=== PATIENT | female | born 1975 | race African-American/Black ===

== ENCOUNTER 2018-07-03 07:03 | Emergency (ER) | payer MEDICARE, MEDICAID ==
[~2018-07-03] VITALS: Ht 154.9 cm; Wt 56.7 kg
[2018-07-03 07:11] VITALS: BP 128/68
--- NOTE | 2018-07-03 07:32 | Emergency Room Report ---
History of Present Illness General Chief Complaint: Abdominal Pain Source: Patient Present Illness [facility] Ms. Wilder is a 42 yo female with history of paranoid schizophrenia who presents with abdominal pain for the last 4 hours. She has stomach upset in the epigastric region with vomiting and diarrhea. No fever. [facility] She normally stays with her grandmother. She has stayed at the [facility] for the last 3 days. She stated that [facility] the [facility] in [facility] to help feed the homeless. She denies other medical conditions. Allergies: Coded Allergies: No Known Allergies (Unverified , 07/03/18) Patient History Past Medical History: psych hx Social History: Reports: smoking; Denies: alcohol use, drug use Last Menstrual Period: 04/2018 Now: No Reviewed Nursing Documentation: PMH: Agreed; PSxH: Agreed Nursing Documentation-PMH History Of Psychiatric Problem: Yes - Bipolar Disorder, Schizophrenia Review of Systems Constitutional: Denies: fever, malaise Cardiovascular: Denies: chest pain Gastrointestinal: Reports: abdominal pain, diarrhea, nausea, vomiting All Other Systems: negative except mentioned in HPI Physical Exam Vital Signs Date Time Temp Pulse Resp B/P (MAP) Pulse Ox O2 Delivery O2 Flow Rate FiO2 07/03/18 06:49 98.1 72 16 128/68 100 98.1 Sp02 EP Interpretation: reviewed, normal General Appearance: no apparent distress, alert, GCS 15, non-toxic Head: normocephalic, atraumatic Eyes: bilateral eye normal inspection ENT: hearing grossly normal, normal pharynx, no angioedema, normal voice Neck: full range of motion, supple/symm/no masses Respiratory: chest non-tender, lungs clear, normal breath sounds, speaking full sentences Cardiovascular #1: regular rate, rhythm, no edema Gastrointestinal: normal bowel sounds, non tender, soft, non-distended, no guarding, no rebound Rectal: deferred Genitourinary: normal inspection Musculoskeletal: back normal, gait/station normal, normal range of motion, non- tender, calf tenderness Neurologic: alert, oriented x3, responsive, motor strength/tone normal, sensory intact, speech normal Psychiatric: judgement/insight normal, memory normal, mood/affect normal, no suicidal/homicidal ideation Skin: normal color, no rash, warm/dry, well hydrated Medical Decision Making Diagnostic Impression: Primary Impression: Food poisoning Additional Impression: Paranoid schizophrenia ER Course Ms. Wilder has had abdominal upset diarrhea for the past 4 hours. No evidence of peritonitis. No fever. Normal vital signs. I informed her that she had a mild case of food poisoning. I informed her that she would be discharged. At that time she informed me that she called 911 in order to obtain mental health. She has not taken her psychiatric medicines in several days. She states if she doesn't feel unsafe. She did not have a plan for suicide. She stated that she wanted to be transferred to mental health facility. Patient is medically clear for psychiatric care. I've asked our charge nurse to assist with voluntary mental health placement. At this time she does not meet criteria for involuntary hold. She is calm insightful. No evidence of acute psychosis. I have reviewed diagnostics obtained in ED. Patient is medically cleared for psychiatric care. She does not have any symptoms of pain, nausea or diarrhea at this time. She informed charge nurse that she has plan to slit her wrists. Our charge nurse has been in contact with facilities for voluntary transfer. Labs Test 07/03/18 07:55 White Blood Count 9.9 K/UL (4.8-10.8) Red Blood Count 4.97 M/UL (4.20-5.40) Hemoglobin 14.5 G/DL (12.0-16.0) Hematocrit 45.9 % (37.0-47.0) Mean Corpuscular Volume 92 FL (80-99) Mean Corpuscular Hemoglobin 29.1 PG (27.0-31.0) Mean Corpuscular Hemoglobin Concent 31.5 G/DL (32.0-36.0) Red Cell Distribution Width 13.8 % (11.6-14.8) Platelet Count 348 K/UL (150-450) Mean Platelet Volume 5.8 FL (6.5-10.1) Neutrophils (%) (Auto) % (45.0-75.0) Lymphocytes (%) (Auto) % (20.0-45.0) Monocytes (%) (Auto) % (1.0-10.0) Eosinophils (%) (Auto) % (0.0-3.0) Basophils (%) (Auto) % (0.0-2.0) Sodium Level 136 MMOL/L (136-145) Potassium Level 4.0 MMOL/L (3.5-5.1) Chloride Level 102 MMOL/L (98-107) Carbon Dioxide Level 29 MMOL/L (21-32) Anion Gap 6 mmol/L (5-15) Blood Urea Nitrogen 11 mg/dL (7-18) Creatinine 0.8 MG/DL (0.55-1.30) Estimat Glomerular Filtration Rate > 60 mL/min (>60) Glucose Level 101 MG/DL (74-106) Calcium Level 8.5 MG/DL (8.5-10.1) Total Bilirubin 0.4 MG/DL (0.2-1.0) Aspartate Amino Transf (AST/SGOT) 15 U/L (15-37) Alanine Aminotransferase (ALT/SGPT) 18 U/L (12-78) Alkaline Phosphatase 59 U/L (46-116) Total Protein 7.4 G/DL (6.4-8.2) Albumin 3.6 G/DL (3.4-5.0) Globulin 3.8 g/dL Albumin/Globulin Ratio 0.9 (1.0-2.7) Human Chorionic Gonadotropin, Qual Negative (NEGATIVE) Salicylates Level 1.8 ug/mL (2.8-20) Urine Opiates Screen Negative (NEGATIVE) Acetaminophen Level < 2 MCG/ML (10-30) Urine Barbiturates Screen Negative (NEGATIVE) Phencyclidine (PCP) Screen Negative (NEGATIVE) Urine Amphetamines Screen Negative (NEGATIVE) Urine Benzodiazepines Screen Negative (NEGATIVE) Urine Cocaine Screen Positive (NEGATIVE) Urine Marijuana (THC) Screen Positive (NEGATIVE) Serum Alcohol < 3 mg/dL Lab Results Impression CBC CMP WNL UDS + cocaine & THC Last Vital Signs Date Time Temp Pulse Resp B/P (MAP) Pulse Ox O2 Delivery O2 Flow Rate FiO2 07/03/18 06:49 98.1 72 16 128/68 100 98.1 Disposition: XFER TO PSYCH HOSP/UNIT Madelyn King MD Jul 03, 2018 07:32
[2018-07-03 08:11] LABS: HEMATOCRIT 45.9 % (37.0-47.0); HEMOGLOBIN 14.5 G/DL (12.0-16.0); MEAN CORPUSCULAR VOLUME 92 FL (80-99); PLATELET COUNT 348 K/UL (150-450); RED BLOOD COUNT 4.97 M/UL (4.20-5.40); RED CELL DISTRIBUTION WIDTH 13.8 % (11.6-14.8); WHITE BLOOD COUNT 9.9 K/UL (4.8-10.8)
[2018-07-03 08:18] LABS: ANION GAP 6 mmol/L (5-15); BLOOD UREA NITROGEN 11 mg/dL (7-18); CALCIUM 8.5 MG/DL (8.5-10.1); CARBON DIOXIDE 29 MMOL/L (21-32); CHLORIDE 102 MMOL/L (98-107); CREATININE 0.8 MG/DL (0.55-1.30); SODIUM 136 MMOL/L (136-145)
[2018-07-03 08:23] LABS: ALANINE AMINOTRANSFERASE 18 U/L (12-78); ALBUMIN 3.6 G/DL (3.4-5.0); ALBUMIN/GLOBULIN RATIO 0.9 (1.0-2.7); ALKALINE PHOSPHATASE 59 U/L (46-116); ASPARTATE AMINO TRANSFERASE 15 U/L (15-37); BILIRUBIN,TOTAL 0.4 MG/DL (0.2-1.0)
[2018-07-03] MEDS ORDERED: traMADol 50mg tab ORAL ONE (10:00)
[2018-07-03 14:00] VITALS: BP 110/66
[2018-07-03 14:30] VITALS: BP 117/63
== END 2018-07-03 14:35 ==
LOC: EDBD 07:03 → EMR 08:00
DX: T62.91XA Toxic effect of unspecified noxious substance eaten as food, accidental (unintentional), initial encounter (principal); R10.9 Unspecified abdominal pain; Y92.89 Other specified places as the place of occurrence of the external cause; F20.0 Paranoid schizophrenia
CPT/HCPCS: 36415; 80053; 80307; 84703; 85007; 85025; 99285; G0480; 80329